=== PATIENT | female | born 1985 | race African-American/Black ===

== ENCOUNTER → 2017-04-10 | Emergency (ER) | payer OTHER | END | disposition home or self-care (01) | LOC: ER 12:12 | DX: Z53.21 Procedure and treatment not carried out due to patient leaving prior to being seen by health care provider (principal) ==

== ENCOUNTER 2017-06-28 | Emergency (ER) | payer OTHER ==
[~2017-06-28] VITALS: Ht 160 cm; Wt 97.1 kg
[2017-06-28] MEDS ORDERED: seroquel (00:39)
[2017-06-28] MEDS ORDERED: wellbutrin (00:39)
--- NOTE | 2017-06-28 01:07 | NUR ---
Pt is noted alert, responsive as DR. CRAWLEY is been assisted with Pelvic Exam . Her care continue.
[2017-06-28 01:16] LABS: *URINE HCG, QUAL NEGATIVE (NEGATIVE)
--- NOTE | 2017-06-28 01:37 | NUR ---
Patient discharged to home in stable conditon. Written and verbal after care instructions given. Patient verbalizes understanding of instructions.
== END 2017-06-28 01:39 | disposition home or self-care (01) ==
LOC: ER 00:20
DX: Z00.8 Encounter for other general examination (principal); F32.9 Major depressive disorder, single episode, unspecified; F20.9 Schizophrenia, unspecified; F43.10 Post-traumatic stress disorder, unspecified; I10 Essential (primary) hypertension; F17.200 Nicotine dependence, unspecified, uncomplicated
CPT/HCPCS: 84703; 87210; A4663; J0696; J3490; Q0144